=== PATIENT | male | born 1990 | race Caucasian/White ===

== ENCOUNTER 2016-12-21 17:18 | Emergency (ER) | payer BC ==
[~2016-12-21] VITALS: Wt 87.0 kg
[2016-12-21] MEDS ORDERED: CLINDAMYCIN 300 MG INJ IM ONE (18:30)
[2016-12-21] MEDS ORDERED: IBUP800T25 PO (19:05)
[2016-12-21] MEDS ORDERED: CLIN-73 PO (19:06)
--- NOTE | 2016-12-21 19:16 | ERD ---
ER Documentation Chief Complaint Date/Time DATE: 12/21/16 TIME: 19:09 Chief Complaint R HAND SWELLING X 3 DAYS HPI This a 26-year-old male who presents to emergency department today complaining of right wrist swelling for the past 3 days. States there is some redness. States he abuses IV drugs and injects himself with heroin. He also abuses benzos. States he last used one day ago. States he is going to a treatment facility. Denies any fevers or chills. ROS All systems reviewed and are negative except as per history of present illness. Medications Home Meds Active Scripts Clindamycin Hcl* (Clindamycin Hcl*) 300 Mg Capsule, 300 MG PO TID for 10 Days, CAP Prov:RICHMOND PYLE PA-C 12/21/16 Ibuprofen* (Motrin*) 800 Mg Tab, 800 MG PO Q6, #30 TAB Prov:RICHMOND PYLE PA-C 12/21/16 Allergies Allergies: Coded Allergies: No Known Allergy (Unverified , 12/21/16) PMhx/Soc History of Surgery: No Anesthesia Reaction: No Hx Neurological Disorder: No Hx Respiratory Disorders: No Hx Cardiac Disorders: No Hx Psychiatric Problems: No Hx Miscellaneous Medical Probl: No Hx Substance Use: Yes (heroin) Physical Exam Vitals Vital Signs Date Time Temp Pulse Resp B/P Pulse Ox O2 Delivery O2 Flow Rate FiO2 12/21/16 17:21 98.0 89 18 133/67 99 Physical Exam Const: Talkative, no acute distress Head: Atraumatic Eyes: Normal Conjunctiva ENT: Normal External Ears, Nose and Mouth. Neck: Full range of motion..~ No meningismus. Resp: Clear to auscultation bilaterally Cardio: Regular rate and rhythm, no murmurs Abd: Soft, non tender, non distended. Normal bowel sounds Skin: Right wrist on volar aspect with evidence of likely abscess formation with firmness and induration. No area of fluctuance. Localized erythema. Patient able to flex his wrist fully. Pulses 2+. Distal neurovascularly intact. Evidence of multiple track vides throughout bilateral arms Neur: Awake and alert Psych: Normal Mood and Affect Results 24 hrs Current Medications Medications (Trade) Dose Ordered Sig/Ephraim Route PRN Reason Start Time Stop Time Status Last Admin Dose Admin Clindamycin Phosphate (Cleocin) 600 mg ONCE ONCE IM 12/21/16 18:30 12/21/16 18:31 DC 12/21/16 18:37 Procedures/MDM This is a 26-year-old male who presents to the emergency department today for pain and swelling on his right wrist. Patient is an IV drug abuser and injects himself with heroin. On physical exam patient has localized erythema and evidence of cellulitis on his right wrist. There is no tracking up his arm. Patient does have multiple track vides from his IV drug abuse. Patient also has a likely abscess formation however there is nothing to drain at this time as there is no area of fluctuance. I do not feel the patient would benefit from an incision and drainage at this time. Patient is afebrile and otherwise well- appearing. He is able to fully flex his wrist and low suspicion for infection to the wrist flexors at this time. Patient indicated that he thought he may have had an allergic reaction to Bactrim in the past. Patient was given 600 mg clindamycin IM here in the emergency department. He was discharged home on clindamycin. He is instructed to return in 48 hours for a wound check. Patient was instructed to stop abusing drugs and he was counseled for greater than 3 minutes on cigarette smoke as well. Do not feel the patient requires admission at this time. Patient was given a prescription for Motrin and clindamycin. At this time the patient is stable for discharge and outpatient management. Patient should follow up with their PCP in the next 1-2 days. They may return to the emergency department sooner for any persistent or worsening of symptoms. Patient understood and agreed with the plan. Discussed the patient with Dr. Rivero and he is in agreement with the plan. Departure Diagnosis: Primary Impression: Cellulitis Site of cellulitis: extremity Site of cellulitis of extremity: upper extremity Laterality: right Qualified Code: L03.113 - Cellulitis of right upper extremity Additional Impression: Abscess Condition: Fair Patient Instructions: Cellulitis, Abscess, Antiobiotic Treatment Only Additional Instructions: Call your primary care doctor TOMORROW for an appointment during the next 1-2 days.See the doctor sooner or return here if your condition worsens before your appointment time. Return in 48 hours for a wound check Take antibiotics as prescribed Take Tylenol or Motrin for pain Stop abusing drugs and cigarettes RICHMOND PYLE PA-C Dec 21, 2016 19:16
== END 2016-12-21 19:22 | disposition home or self-care (01) ==
LOC: FTE 17:18
DX: L03.113 Cellulitis of right upper limb (principal); L02.413 Cutaneous abscess of right upper limb
CPT/HCPCS: 96372

== ENCOUNTER 2018-01-04 16:53 | Emergency (ER) | END 2018-01-04 21:38 | disposition left against medical advice (07) ==

== ENCOUNTER 2018-01-05 02:26 | Inpatient (IN) | END 2018-01-05 23:05 | disposition left against medical advice (07) | DRG 603 ==